=== PATIENT | male | born 1970 | race Caucasian/White ===

== ENCOUNTER 2021-01-10 10:19 | Emergency (ER) | payer BC ==
[2021-01-10] MEDS ORDERED: methylPREDNISolone Sodium Succinate 125 MG/2 ML SDV IM STA (11:06)
--- NOTE | 2021-01-10 11:12 | EDM.PDOC ---
ED HPI GENERAL MEDICAL PROBLEM - General Chief Complaint: Skin Complaint Stated Complaint: rash Time Seen by Provider: 01/10/21 11:05 Source of Information: Reports: Patient History Limitations: Reports: No Limitations - History of Present Illness INITIAL COMMENTS - FREE TEXT/NARRATIVE: This patient is a 50 year old male that presents to the ER. Patient report that for 3 days having a rash to the left elvbow/forearm that itches and tavera. He reports it is having a liquid from it. Patient reports that the rash has spread now to the right elbow, left anterior shoulder, and central lower back. 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 Denies n, v, d, f, shortness of breath, facial involvement. Onset Date: 01/07/21 Duration: Day(s): (3) Front/Back Body Image: 1 - rash 2 - rash 3 - rash 4 - rash Quality: Reports: Burning (and itching) Severity: Mild Improves with: Reports: None Worsens with: Reports: None Associated Symptoms: Reports: No Other Symptoms. Denies: Confusion, Chest Pain, Cough, cough w sputum, Diaphoresis, Fever/Chills, Headaches, Loss of Appetite, Malaise, Nausea/Vomiting, Rash, Seizure, Shortness of Breath, Syncope, Weakness - Related Data Allergies Allergy/AdvReac Type Severity Reaction Status Date / Time No Known Allergies Allergy Verified 01/10/21 10:22 Home Meds: Home Meds predniSONE [Prednisone] 20 mg PO ASDIRECTED #30 tablet 01/10/21 [Rx] Past Medical History HEENT History: Reports: None Cardiovascular History: Reports: None Respiratory History: Reports: None Gastrointestinal History: Reports: Irritable Bowel Syndrome, Other (See Below) Other Gastrointestinal History: Chrones disease Genitourinary History: Reports: None Musculoskeletal History: Reports: None Neurological History: Reports: None Psychiatric History: Reports: None Endocrine/Metabolic History: Reports: None Hematologic History: Reports: None Immunologic History: Reports: None Oncologic (Cancer) History: Reports: None Dermatologic History: Reports: None - Infectious Disease History Infectious Disease History: Reports: None - Past Surgical History Head Surgeries/Procedures: Reports: None GI Surgical History: Reports: Appendectomy, Colon, Colostomy Social & Family History - Family History Family Medical History: No Pertinent Family History - Tobacco Use Tobacco Use Status *Q: Never Tobacco User - Caffeine Use Caffeine Use: Reports: None - Recreational Drug Use Recreational Drug Use: No ED ROS GENERAL - Review of Systems Review Of Systems: See Below Constitutional: Reports: No Symptoms HEENT: Reports: No Symptoms Respiratory: Reports: No Symptoms Cardiovascular: Reports: No Symptoms Endocrine: Reports: No Symptoms GI/Abdominal: Reports: No Symptoms : Reports: No Symptoms Musculoskeletal: Reports: No Symptoms Skin: Reports: Rash (see images) Neurological: Reports: No Symptoms Psychiatric: Reports: No Symptoms Hematologic/Lymphatic: Reports: No Symptoms Immunologic: Reports: No Symptoms ED EXAM, SKIN/RASH Exam: See Below Exam Limited By: No Limitations General Appearance: Alert, WD/WN, No Apparent Distress Eye Exam: Bilateral Eye: PERRL Ears: Normal External Exam, Normal Canal, Hearing Grossly Normal, Normal TMs Nose: Normal Inspection, Normal Mucosa, No Blood Throat/Mouth: Normal Inspection, Normal Lips, Normal Teeth, Normal Gums, Normal Oropharynx, Normal Voice, No Airway Compromise Head: Atraumatic, Normocephalic Neck: Normal Inspection, Supple, Non-Tender, Full Range of Motion Respiratory/Chest: No Respiratory Distress, Lungs Clear, Normal Breath Sounds, No Accessory Muscle Use Cardiovascular: Normal Peripheral Pulses, Regular Rate, Rhythm, No Edema, No Gallop, No JVD, No Murmur, No Rub Peripheral Pulses: 2+: Radial (L), Radial (R), Posterior Tibial (L), Posterior Tibial (R) GI/Abdominal: Soft, Non-Tender Back Exam: Full Range of Motion, Other (rash) Extremities: Normal Range of Motion, Non-Tender, No Pedal Edema, Normal Capillary Refill Neurological: Alert, Oriented, Normal Cognition, Normal Gait, No Motor/Sensory Deficits Psychiatric: Normal Affect, Normal Mood Skin: Warm, Rash (contact dermatitis/poison cherrie appearing rash with drainage clear and crusting to the left elbow, right elbow, lower central back, left anterior shoulder. ) Location, Skin: Back, Upper Extremity, Right, Upper Extremity, Left Associated features: Crusting, Weeping Lymphatic: No Adenopathy Course - Vital Signs Last Recorded V/S: Last Vital Signs Temp 97.1 F 01/10/21 10:20 Pulse 62 01/10/21 10:20 Resp 18 01/10/21 10:20 BP 137/80 01/10/21 10:20 Pulse Ox 97 01/10/21 10:20 - Orders/Labs/Meds Meds: Medications Discontinued Medications Generic Name Dose Route Start Last Admin Trade Name Ayesha PRN Reason Stop Dose Admin Methylprednisolone Sodium Succinate 125 mg 01/10/21 11:06 01/10/21 11:22 Methylprednisolone Sodium Succinate 125 Mg/2 Ml Sdv IM 01/10/21 11:07 125 mg NOW STA Administration Departure - Departure Time of Disposition: 11:08 Disposition: Home, Self-Care 01 Condition: Good Clinical Impression: Contact dermatitis Qualifiers: Contact dermatitis type: unspecified Contact dermatitis trigger: unspecified trigger Qualified Code(s): L25.9 - Unspecified contact dermatitis, unspecified cause - Discharge Information *PRESCRIPTION DRUG MONITORING PROGRAM REVIEWED*: Not Applicable *COPY OF PRESCRIPTION DRUG MONITORING REPORT IN PATIENT KAREEM: Not Applicable Prescriptions: predniSONE [Prednisone] 20 mg PO ASDIRECTED #30 tablet Instructions: Poison Cherrie Dermatitis, [id number] Forms: ED Department Discharge Additional Instructions: Followup with primary care provider as needed, or worsening, or no improvement Return to the ER for emergencies such as fever, facial involvement, shortness of breath, or other concerns Do not touch or itch the area Prednisone 20mg 1 pill three times a day for 5 days, then 1 pill twice a day for 5 days, then 1 pill once ad ay for 5 days #30 no refill: Sent to [facility] Oatmeal baths, cold/cold wet compresses may help Antihistamine such as Benadryl may help with itching Sepsis Event Note (ED) - Focused Exam Vital Signs: Vital Signs Temp Pulse Resp BP Pulse Ox 01/10/21 10:20 97.1 F 62 18 137/80 97 - Assessment/Plan Plan: PLEASE SEE RN NOTE FOR PFS
== END 2021-01-10 11:30 | disposition home or self-care (01) ==
LOC: CC.ED 10:19
DX: L25.9 Unspecified contact dermatitis, unspecified cause (principal)
CPT/HCPCS: 96372; 99282; J2930

== ENCOUNTER 2024-04-14 21:43 | Observation (INO) | payer BC ==
[2024-04-14 22:08] LABS: BASOPHILS ABSOLUTE AUTO 0.04 10^3/uL (0.00-0.50); BASOPHILS PERCENT AUTO 0.5 % (0-1); EOSINOPHILS ABSOLUTE AUTO 0.06 10^3/uL (0.00-1.50); EOSINOPHILS PERCENT AUTO 0.8 % (0-6); HEMOGLOBIN 16.2 g/dL (14.0-18.0); IMMATURE GRAN ABSOLUTE AUTO 0.01 10^3/uL (0.00-0.49); IMMATURE GRAN PERCENT AUTO 0.1 % (0.0-4.9); LYMPHOCYTES PERCENT AUTO 17.7 % (24-44); MEAN CORPUSCULAR HGB CONC 35.2 g/dL (32.0-36.0); MEAN CORPUSCULAR VOLUME 90.9 fL (83.0-97.0); MONOCYTES ABSOLUTE AUTO 0.54 10^3/uL (0.00-1.50); MONOCYTES PERCENT AUTO 6.8 % (0-10); NEUTROPHILS ABSOLUTE AUTO 5.87 x10^3/uL (1.80-8.00); NEUTROPHILS PERCENT AUTO 74.1 % (41-71); PLATELET COUNT,PLT 168 10^3/uL (150-400); RED BLOOD CELL COUNT 5.06 x10^6/uL (4.50-6.00); WHITE BLOOD CELL COUNT,WBC 7.9 10^3/uL (4.0-11.0)
[2024-04-14 22:23] LABS: ALBUMIN 4.1 g/dL (3.4-5.0); BILIRUBIN TOTAL 0.7 mg/dL (0.0-1.0); CALCIUM 8.6 mg/dL (8.4-10.1); CREATININE 1.2 mg/dL (0.7-1.3); EST CRCL DRUG DOSING (CG) 81.38 mL/min; MAGNESIUM 2.1 mg/dL (1.8-2.4); POTASSIUM,K 3.7 mEq/L (3.5-5.0); PROTEIN TOTAL,TP 7.2 g/dL (6.4-8.2)
[2024-04-14 22:32] LABS: APPEARANCE,URINE CLEAR (CLEAR); BILIRUBIN,URINE NEGATIVE (NEGATIVE); COLOR,URINE YELLOW (YELLOW); GLUCOSE,URINE NEGATIVE (NEGATIVE); KETONES,URINE NEGATIVE (NEGATIVE); LEUKOCYTE ESTERASE,URINE NEGATIVE (NEGATIVE); NITRITE,URINE NEGATIVE (NEGATIVE); OCCULT BLOOD,URINE NEGATIVE (NEGATIVE); PROTEIN,URINE NEGATIVE (NEGATIVE); UROBILINOGEN,URINE 0.2 EU/dL (0.2-1.0)
[2024-04-14] MEDS: Lactated Ringers 1,000 ML IV ONE (22:39)
[2024-04-14] MEDS: Iopamidol 755 Mg/ML 100 ML Bottle IVPUSH ONE (22:43)
[2024-04-15] MEDS: Sodium Chloride 0.9% 1,000 ML IV SCH (00:54)
[2024-04-15] MEDS ORDERED: Polyethylene Glycol 3350 Powder 17 GM Packet PO PRN (01:34)
[2024-04-15] MEDS ORDERED: Ondansetron 4 MG Tab.DIS PO PRN (01:34)
[2024-04-15] MEDS ORDERED: Docusate Sodium 100 MG Cap PO PRN (01:34)
[2024-04-15] MEDS ORDERED: HYDROmorphone 1 MG/ML Syringe IVPUSH PRN (01:34)
[2024-04-15] MEDS: Ondansetron 4 MG/2 ML SDV IV PRN (01:43)
[2024-04-15] MEDS: HYDROmorphone 0.5 MG/0.5 ML Syringe IVPUSH PRN (01:56)
[2024-04-15] MEDS: Benzocaine 20% Topical Spray UD MUCMEM ONE (02:27)
[2024-04-15] MEDS: HYDROmorphone 0.5 MG/0.5 ML Syringe IVPUSH ONE (02:27)
[2024-04-15] MEDS: Barium Sulfate w/v 2% Oral Susp 450 ML Bottle PO ONE (08:49)
== END 2024-04-15 03:32 ==
LOC: CC.ED 21:43 → CC.MS 04-15 00:53 → UNDOADMOB 04-15 00:53 → CC.MS 04-15 00:54 → UNDODISOB 04-15 03:32
PROVIDERS: ADMIT Nurse Practitioner; ATTEND Nurse Practitioner
DX: K56.600 Partial intestinal obstruction, unspecified as to cause (principal)
CPT/HCPCS: 36415; 71045; 74018; 74177; 80053; 81003; 83605; 83690; 83735; 85025; 96360; 96361; 96374; 96375; 99236; 99285-25; A9270-GY; G0378; J2405; J3490; J7030; J7120; Q9967